=== PATIENT | female | born 1990 | race Hispanic/Latino ===

== ENCOUNTER 2016-07-29 02:52 | Inpatient (IN) | payer BC ==
[2016-07-29] VITALS (22 sets, daily range): BP systolic 99–137; BP diastolic 55–81
[~2016-07-29] VITALS: Ht 157.5 cm; Wt 81.4 kg
[2016-07-29] MEDS ORDERED: ZANTAC75 M1 PO (04:17)
[2016-07-29 04:19] LABS: EOSINOPHIL (%) 1.1 % (0-5); EOSINOPHIL COUNT 0.1 K/uL (0-0.3); HEMATOCRIT 35.5 % (36.0-46.0); IMMATURE GRANULOCYTE (%) 0.4 % (0.0-0.7); IMMATURE GRANULOCYTE COUNT 0.5 K/uL; LYMPHOCYTE COUNT 2.8 K/uL (1.0-2.8); MCH 26.4 PG (29.0-34.0); MCHC 32.7 G/DL (30.0-36.0); MCV 80.7 FL (83-99); MEAN PLAT.VOLUME 11.1 uM^3 (9.5-12.4); MONOCYTE (%) 5.3 % (3-12); MONOCYTE COUNT 0.7 K/uL (0-0.8); NEUTROPHIL (%) 70.9 % (45-76); NEUTROPHIL COUNT 9.1 K/uL (1.8-6.4); PLATELET COUNT 252 K/uL (156-360); RBC DIS.WIDTH-CV 15.4 % (11.8-14.6); RBC DIS.WIDTH-SD 44.1 % (39-53); WHITE BLOOD COUNT 12.8 K/uL (4.1-10.2)
[2016-07-29] MEDS ORDERED: PRENATAL MULTI1 EAC5 PO (04:20)
[2016-07-29] MEDS ORDERED: MOTRIN800 MG PO (13:31)
[2016-07-30 07:47] VITALS: BP 114/64
[2016-07-30 15:00] VITALS: BP 120/61
[2016-07-30 22:08] VITALS: BP 125/88
[2016-07-31 07:32] VITALS: BP 119/80
== END 2016-07-31 15:56 | disposition home or self-care (01) | DRG 775 ==
LOC: LDRP-OP 02:52 → 2WEST 02:53 → LDRP-OP 08-23 09:56
PROVIDERS: Advanced Practice Midwife
PROC: 10907ZC Drainage of Amniotic Fluid, Therapeutic from Products of Conception, Via Natural or Artificial Opening (ICD-10-PCS; principal; 2016-07-29)
PROC: 00HU33Z Insertion of Infusion Device into Spinal Canal, Percutaneous Approach (ICD-10-PCS; principal; 2016-07-29)
PROC: 10E0XZZ Delivery of Products of Conception, External Approach (ICD-10-PCS; principal; 2016-07-29)
PROC: 3E0R3CZ (ICD-10-PCS; principal; 2016-07-29)
DX: O99.824 Streptococcus B carrier state complicating childbirth (principal); Z37.0 Single live birth; Z3A.40 40 weeks gestation of pregnancy
CPT/HCPCS: 85025; C1755; J2540; J2795; J3010; J7120

== ENCOUNTER 2016-08-29 18:29 | Emergency (ER) | payer BC ==
[~2016-08-29] VITALS: Ht 157.5 cm; Wt 75.9 kg
[~2016-08-29 18:29] MED LIST: MOTRIN800 MG PO; PRENATAL MULTI1 EAC5 PO; ZANTAC75 M1 PO
[2016-08-29 19:36] LABS: HEMATOCRIT 40.1 % (36.0-46.0); MCH 26.4 PG (29.0-34.0); MCHC 31.4 G/DL (30.0-36.0); MCV 83.9 FL (83-99); MEAN PLAT.VOLUME 10.3 uM^3 (9.5-12.4); PLATELET COUNT 303 K/uL (156-360); RBC DIS.WIDTH-CV 14.6 % (11.8-14.6); RED BLOOD COUNT 4.78 M/uL (3.80-5.20); WHITE BLOOD COUNT 8.9 K/uL (4.1-10.2)
[2016-08-29 19:55] LABS: CHLORIDE 108 mEq/L (99-109); POTASSIUM 3.7 mEq/L (3.7-5.4); SODIUM 142 mEq/L (136-147)
[2016-08-29 19:57] LABS: GLUCOSE 98 mg/dL (70-99)
[2016-08-29 19:59] LABS: ANION GAP 10 MEQ/L (2-14); TOTAL BILIRUBIN 0.2 mg/dL (0.0-1.0)
[2016-08-29 20:01] LABS: ALKALINE PHOSPHATASE 138 IU/L (3-129); GFR ESTIMATE (CALCULATED) > 59 mL/min/
[2016-08-29 20:02] LABS: UREA NITROGEN (BUN) 9 mg/dL (9-23)
[2016-08-29 20:04] LABS: LIPASE 13 U/L (1.0-51.0)
[2016-08-29 20:11] LABS: QUANTITATIVE HCG < 4.0 MIU/ML
[2016-08-29 20:55] LABS: ADD MIUA? YES; BILIRUBIN NEGATIVE; BLOOD LARGE; GLUCOSE (STRIP) NEGATIVE; KETONES NEGATIVE; LEUKOCYTES TRACE; NITRITE NEGATIVE; PROTEIN (STRIP) 100; SPECIFIC GRAVITY 1.019 (1.000-1.030); UROBILINOGEN 0.2 MG/DL (0.2-1.0)
[2016-08-29 21:03] LABS: COLOR RED ((YELLOW))
[2016-08-29 21:08] LABS: BACTERIA NONE SEEN /HPF; EPITHELIAL CELLS RARE /HPF; MUCUS NONE SEEN /LPF; RED BLOOD CELLS 40-50 /HPF (0-5); UCUL ADDED? NO; WHITE BLOOD CELLS NONE SEEN /HPF (0-5); WHITE BLOOD CELLS CLUMP FEW /HPF (0-5)
[2016-08-29] MEDS ORDERED: PERCOCET 5/31 TABLET PO (22:25)
[2016-08-29 22:53] VITALS: BP 129/84
== END 2016-08-29 22:53 | disposition home or self-care (01) ==
LOC: RME 18:29 → EME 18:29 → RME 22:53
DX: N13.2 Hydronephrosis with renal and ureteral calculous obstruction (principal); R10.12 Left upper quadrant pain; R11.0 Nausea; N93.9 Abnormal uterine and vaginal bleeding, unspecified
CPT/HCPCS: 74176; 80053; 81003; 83690; 84702; 85027; 99281; 99284

== ENCOUNTER 2016-11-24 09:54 | Emergency (ER) | payer BC ==
[~2016-11-24] VITALS: Ht 157.5 cm; Wt 75.4 kg
[~2016-11-24 09:54] MED LIST changes: +PERCOCET 5/31 TABLET PO
[2016-11-24 11:03] LABS: ADD MIUA? NO; BILIRUBIN NEGATIVE; BLOOD NEGATIVE; COLOR YELLOW ((YELLOW)); GLUCOSE (STRIP) NEGATIVE; KETONES NEGATIVE; LEUKOCYTES NEGATIVE; NITRITE NEGATIVE; PROTEIN (STRIP) NEGATIVE; SPECIFIC GRAVITY 1.014 (1.000-1.030); UCUL ADDED? NO; UROBILINOGEN 0.2 MG/DL (0.2-1.0)
[2016-11-24 11:09] LABS: HEMATOCRIT 41.8 % (36.0-46.0); MCH 27.3 PG (29.0-34.0); MCHC 32.3 G/DL (30.0-36.0); MCV 84.6 FL (83-99); MEAN PLAT.VOLUME 10.3 uM^3 (9.5-12.4); PLATELET COUNT 354 K/uL (156-360); RBC DIS.WIDTH-CV 12.8 % (11.8-14.6); RED BLOOD COUNT 4.94 M/uL (3.80-5.20); WHITE BLOOD COUNT 9.3 K/uL (4.1-10.2)
[2016-11-24 11:44] LABS: ANION GAP 8 MEQ/L (2-14); CHLORIDE 104 MEQ/L (99-109); GFR ESTIMATE (CALCULATED) > 59 mL/min/; GLUCOSE 91 mg/dL (70-99); POTASSIUM 3.8 MEQ/L (3.7-5.4); SAMPLE HEMOLYSIS CHECK 0; SAMPLE ICTERIC CHECK 0; SAMPLE LIPEMIA CHECK 0; SODIUM 136 MEQ/L (136-147); UREA NITROGEN (BUN) 9 mg/dL (9-23)
[2016-11-24] MEDS ORDERED: FLEXERIL5 MG PO (12:14)
[2016-11-24] MEDS ORDERED: NORCO 5/3251 TABLET PO (12:27)
[2016-11-24 12:45] VITALS: BP 97/72
[2016-11-24 12:54] LABS: QUANTITATIVE HCG < 4.0 MIU/ML
== END 2016-11-24 12:46 | disposition home or self-care (01) ==
LOC: EME 09:54
DX: M54.9 Dorsalgia, unspecified (principal); Z87.442 Personal history of urinary calculi
CPT/HCPCS: 80048; 81003; 84702; 85027; 99281; 99284; J1885